=== PATIENT | female | born 1960 | race Two or more races ===

== ENCOUNTER 2024-01-17 06:21 | Day surgery (SDC) | payer BC, SELFPAY ==
[2024-01-17] VITALS (11 sets, daily range): BP systolic 123–165; BP diastolic 66–94; BMI 26.7
[2024-01-17] MEDS: CELEBREX 200 MG PO (15:29)
[2024-01-17] MEDS: TYLENOL 1000 MG PO (15:29)
[2024-01-17] MEDS: NORMOSOL-R 1000 IV (15:41)
[2024-01-17] MEDS: NORMOSOL-R IV (15:56)
[2024-01-17] MEDS: ZOFRAN 4 MG IV (18:03)
[2024-01-17] MEDS: COMPAZINE 5 MG IV (18:20)
--- NOTE | 2024-01-17 19:55 | SUR.PHASEI ---
1845 - comfortable with block and local to left arm. able to wiggle fingers, warm to touch, swelling noted, patient aware to exercise fingers as much as possible. and keep elevated. ice to wrist. treated nausea with zofran and compazine with
relief. family to visit in [place]
== END 2024-01-17 19:40 | disposition home or self-care (01) ==
LOC: SDS 06:21
PROVIDERS: ATTENDING PHYSICIAN Orthopaedic Surgery Hand Surgery
DX: S52.572A Other intraarticular fracture of lower end of left radius, initial encounter for closed fracture (principal); X58.XXXA Exposure to other specified factors, initial encounter
CPT/HCPCS: 25609; C1713

== ENCOUNTER → 2024-06-19 14:00 | Outpatient (REF) | payer BC, SELFPAY | LOC: HWRAD 14:00 | PROVIDERS: ATTENDING PHYSICIAN Physician Assistant Surgical; FAMILY PHYSICIAN Physician Assistant Medical | DX: S42.202A Unspecified fracture of upper end of left humerus, initial encounter for closed fracture (principal) | CPT/HCPCS: 73200 ==

== ENCOUNTER 2024-06-25 06:19 | Day surgery (SDC) | payer BC, SELFPAY ==
[2024-06-25] VITALS (12 sets, daily range): BP systolic 99–143; BP diastolic 54–78; BMI 26.5
--- NOTE | 2024-06-25 08:49 | W.DS.TRANS ---
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
-
Discharge Instructions:
Discharge Diagnosis/Procedures L shoulder ORIF conversion [facility]-Dr. Hoff 06/25
Diet As tolerated
Activity No strenuous activity
Driving Restrictions No driving
Instructions:
Stand-Alone Forms: SDS Total Shoulder D/C Inst.
Changes to Home Medications: Yes
Discharge Medications:
DC Medications w/original date entered in [employer]
atorvastatin 20 mg tablet 20 mg PO HS 01/16/24
calcium carbonate (Calcium 600) 600 mg PO BID 01/16/24
cetirizine 10 mg tablet (Zyrtec) 10 mg PO HS 01/16/24
cholecalciferol (vitamin D3) 50 mcg (2,000 unit) capsule (Vitamin D3) 50 mcg PO DAILY 01/16/24
estradiol 0.01% (0.1 mg/gram) vaginal cream 1 g vaginal [facility]ESA 01/16/24
famotidine 40 mg tablet 40 mg PO BID 01/16/24
fluticasone propionate 50 mcg/actuation nasal spray,suspension 1 spray intranasal DAILY 01/16/24
methscopolamine 5 mg tablet 2.5 mg PO DAILY 01/16/24
Saccharomyces boulardii 250 mg capsule (Florastor) 250 mg PO BID #1 cap 06/25/24
acetaminophen 500 mg tablet 1,000 mg (2 x 500 mg) PO QID #0 tabs 06/25/24
aspirin 325 mg tablet 325 mg PO DAILY blood clot prevention #1 tab 06/25/24
celecoxib 200 mg capsule 200 mg PO DAILY anti-inflammatory #14 caps 06/25/24
dexamethasone 4 mg tablet 4 mg PO BID inflammation #6 tabs 06/25/24
docusate sodium 100 mg capsule (Colace) 100 mg PO BID #0 caps 06/25/24
docusate sodium 100 mg capsule (Colace) 100 mg PO BID stool softner #1 cap 06/25/24
doxycycline hyclate 100 mg capsule 100 mg PO BID infection prevention #10 caps 06/25/24
gabapentin 300 mg capsule 300 mg PO HS sleep/pain #10 caps 06/25/24
hydromorphone 2 mg tablet (Dilaudid) 2 - 4 mg (1 - 2 x 2 mg) PO Q6H PRN moderate-severe pain #0 tabs 06/25/24
magnesium hydroxide 400 mg/5 mL oral suspension (Milk of Magnesia) 30 ml PO HS PRN Constipation #1 mL 06/25/24
ondansetron 4 mg disintegrating tablet 4 mg PO Q6H PRN n/v #20 tabs 06/25/24
sennosides 8.6 mg tablet (Senokot) 17.2 mg (2 x 8.6 mg) PO BID laxative #2 tabs 06/25/24
Home Medication Changes
Saccharomyces boulardii 250 mg capsule (Florastor) 250 mg PO BID #1 cap 06/25/24
acetaminophen 500 mg tablet 1,000 mg (2 x 500 mg) PO QID #0 tabs 06/25/24
aspirin 325 mg tablet 325 mg PO DAILY blood clot prevention #1 tab 06/25/24
celecoxib 200 mg capsule 200 mg PO DAILY anti-inflammatory #14 caps 06/25/24
dexamethasone 4 mg tablet 4 mg PO BID inflammation #6 tabs 06/25/24
docusate sodium 100 mg capsule (Colace) 100 mg PO BID #0 caps 06/25/24
docusate sodium 100 mg capsule (Colace) 100 mg PO BID stool softner #1 cap 06/25/24
doxycycline hyclate 100 mg capsule 100 mg PO BID infection prevention #10 caps 06/25/24
gabapentin 300 mg capsule 300 mg PO HS sleep/pain #10 caps 06/25/24
hydromorphone 2 mg tablet (Dilaudid) 2 - 4 mg (1 - 2 x 2 mg) PO Q6H PRN moderate-severe pain #0 tabs 06/25/24
magnesium hydroxide 400 mg/5 mL oral suspension (Milk of Magnesia) 30 ml PO HS PRN Constipation #1 mL 06/25/24
ondansetron 4 mg disintegrating tablet 4 mg PO Q6H PRN n/v #20 tabs 06/25/24
sennosides 8.6 mg tablet (Senokot) 17.2 mg (2 x 8.6 mg) PO BID laxative #2 tabs 06/25/24
Pending Results: No
[2024-06-25] MEDS: CELEBREX 200 MG PO (10:57)
[2024-06-25] MEDS: EMEND 40 MG PO (10:58)
[2024-06-25] MEDS: NORMOSOL-R/PLASMALYTE-A 1000 IV (10:59)
[2024-06-25 11:05] LABS: Hematocrit 34.8 % (37.0-47.0); Hemoglobin 11.9 g/dL (12.0-16.0); Mean Corp Hgb Conc. 34.2 g/dL (33.0-37.0); Mean Corpuscular Hgb 32.7 pg (27.0-31.0); Mean Corpuscular Volume 95.6 fL (81.0-99.0); Mean Platelet Volume 10.3 fL (7.4-10.4); Platelet Count 237 10^3/uL (130-400); Red Blood Cell Count 3.64 10^6/uL (4.20-5.40); White Blood Cell Count 6.4 10^3/uL (4.8-10.8)
[2024-06-25 11:23] LABS: ALT (SGPT) 87 U/L (0-35); AST (SGOT) 100 U/L (14-36); Albumin 3.8 g/dl (3.5-5.0); Alkaline Phosphatase 120 U/L (38-126); Blood Urea Nitrogen 12 mg/dl (7-17); Calcium 9.2 mg/dl (8.4-10.2); Carbon Dioxide 28 mmol/L (22-30); Chloride 101 mmol/L (98-107); Estimated Creatinine Clearance 90 ml/min; Glucose 108 mg/dl (70-99); Potassium 3.9 mmol/L (3.5-5.1); Sodium 136 mmol/L (135-145); Total Bilirubin 0.7 mg/dl (0.2-1.3); Total Protein 6.7 g/dl (6.3-8.2); eGFR > 60.00
[2024-06-25 11:28] LABS: Glycohemoglobin (HgbA1c) 5.7 % (4.0-5.6)
[2024-06-25] MEDS: ZOFRAN 4 MG IV (15:06)
[2024-06-25] MEDS: COMPAZINE 5 MG IV (15:22)
[2024-06-25] MEDS: ANCEF 5 IV (17:16)
== END 2024-06-25 17:57 | disposition home or self-care (01) ==
LOC: SDS 06:19
PROVIDERS: ATTENDING PHYSICIAN Orthopaedic Surgery Hand Surgery
DX: S42.202A Unspecified fracture of upper end of left humerus, initial encounter for closed fracture (principal); X58.XXXA Exposure to other specified factors, initial encounter; M19.012 Primary osteoarthritis, left shoulder
CPT/HCPCS: 23615; C1713; 73020; 73030; 76000; 80053; 83036; 85027; 86850; 86900; 86901; 87070